=== PATIENT | male | born 1995 | race American Indian/Alaskan Native ===

== ENCOUNTER 2019-01-10 21:01 | Emergency (ER) | payer OTHER ==
[~2019-01-10] VITALS: Ht 193 cm; Wt 97.3 kg
--- NOTE | 2019-01-10 22:30 | NUR ---
auto electrical technician at bedside.
[2019-01-10 23:18] VITALS: BP 149/94
== END 2019-01-10 23:34 | disposition home or self-care (01) ==
LOC: ER 21:02
DX: S80.11XA Contusion of right lower leg, initial encounter (principal); F17.200 Nicotine dependence, unspecified, uncomplicated; Z88.8 Allergy status to other drugs, medicaments and biological substances; Z88.5 Allergy status to narcotic agent; W21.07XA Struck by softball, initial encounter; Y93.64 Activity, baseball; Y92.89 Other specified places as the place of occurrence of the external cause; Y99.8 Other external cause status
CPT/HCPCS: 93971; 99284